=== PATIENT | male | born 1985 | race Caucasian/White ===

== ENCOUNTER 2021-02-12 20:00 | Outpatient (CLI) | payer OTHER, SELFPAY | END 2021-02-12 20:01 | disposition home or self-care (01) | LOC: SLEEP 02-13 05:54 | PROVIDERS: Visit Provider Orthopaedic Surgery | DX: G47.30 Sleep apnea, unspecified (principal); R00.2 Palpitations | CPT/HCPCS: 95810 ==

== ENCOUNTER 2021-02-20 13:42 | Outpatient (CLI) | payer OTHER, SELFPAY ==
--- NOTE | 2021-02-20 13:52 | USCV_ITS ---
Paul Katz Age: 35 Gender: M : 1985 Exam Date: 02/20/2021 14:02 Ordering Phys: Ti Hahn MD Technologist: Allyson Vazquez [place]am Location[place] [facility] [place] Indication: PALPITATIONS BP: 141 / 86 HR: 82 Rhythm: Sinus Technical Quality: Adequate MEASUREMENTS (Male / Female) Normal Values 2D ECHO LV Diastolic Diameter PLAX 5.2 cm 4.2 - 5.9 / 3.9 - 5.3 cm LV Systolic Diameter PLAX 4.6 cm LV Chamber Size 3.6 cm IVS Diastolic Thickness 1.3 cm 0.6 - 1.0 / 0.6 - 0.9 cm IVS Systolic Thickness 1.8 cm LVPW Diastolic Thickness 2.0 cm 0.6 - 1.0 / 0.6 - 0.9 cm LVPW Systolic Thickness 2.0 cm RV Chamber Size 2.2 cm LVOT Diameter 2.1 cm LV Ejection Fraction 2D Teich 25.9 % LV Ejection Fraction MOD 2C 52.7 % LV Ejection Fraction 2C AL 50.3 % LA Diameter 3.5 cm LA Width 3.6 cm LA Height 5.3 cm RA Width 2.6 cm RA Height 4.3 cm Aorta at Sinotubular Diameter 2.8 cm M-MODE LV Diastolic Diameter MM 6.8 cm 4.2 - 5.9 / 3.9 - 5.3 cm LV Systolic Diameter MM 4.8 cm LV Ejection Fraction MM Teich 54.7 % IVS Diastolic Thickness MM 0.8 cm 0.6 - 1.0 / 0.6 - 0.9 cm IVS Systolic Thickness MM 1.1 cm LVPW Diastolic Thickness MM 1.0 cm 0.6 - 1.0 / 0.6 - 0.9 cm LVPW Systolic Thickness MM 1.4 cm Aortic Annulus Diameter 3.5 cm LA Ao Ratio MM 0.9 MV E Point Septal Separation 1.1 cm DOPPLER AV Peak Velocity 125.7 cm/s LVOT Peak Velocity 108.3 cm/s AV Area Cont Eq vti 2.8 cm squared AV Area Cont Eq pk 2.9 cm squared MV Area PHT 3.5 cm squared Mitral E to A Ratio 0.9 MV E' Velocity 38.5 cm/s Mitral E to MV E' Ratio 5.8 Mitral E to LV E' Lateral Ratio 5.5 Mitral E to LV E' Septal Ratio 6.0 TR Peak Velocity 240.8 cm/s TR Peak Gradient 23.2 mmHg TV Peak E Velocity 77.3 cm/s Right Atrial Pressure 3.0 mmHg Pulmonary Artery Systolic Pressu 26.2 mmHg PV Peak Velocity 60.0 cm/s RV Acceleration Time 0.1 s RV Ejection Time 0.3 s RV AcT/ET 0.4 FINDINGS Left Ventricle Mild diffuse hypokinesia of the left ventricle with an ejection fraction of 45 to 50%Grade I/IV diastolic dysfunction (abnormal relaxation filling pattern), normal to mildly elevated filling pressures. Right Ventricle The right ventricle is normal in size and function. Right Atrium The right atrium is normal in size. Left Atrium Left atrium, upper limit of normal size Mitral Valve No gross abnormalities noted Aortic Valve No gross abnormalities noted Tricuspid Valve No gross abnormalities noted Pulmonic Valve Pulmonic valve not well visualized. Pericardium Normal pericardium without effusion. Aorta Normal ascending aorta dimension. CONCLUSIONS Mild diffuse hypokinesia of the left ventricle with an ejection fraction of 45 to 50%. Grade I/IV diastolic dysfunction (abnormal relaxation filling pattern), normal to mildly elevated filling pressures. Left atrium, upper limit of normal size. No significant stenotic or regurgitant lesions. There is no pericardial effusion. There are no intracardiac masses. No previous study is available for comparison. Dr Tavares Boyle MD [facility] (Electronically Signed) Final Date: 23 February 2021 17:51 S
--- NOTE | 2021-02-20 14:28 | ECG_ITS ---
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
== END 2021-02-20 13:43 | disposition home or self-care (01) ==
LOC: RAD 13:45
PROVIDERS: Visit Provider Orthopaedic Surgery
DX: R00.2 Palpitations (principal); G47.30 Sleep apnea, unspecified; I51.81 Takotsubo syndrome
CPT/HCPCS: 93005; 93306